=== PATIENT | male | born 1930 | race Caucasian/White ===

== ENCOUNTER 2021-04-05 10:58 | Emergency (ER) | payer MEDICARE ==
[~2021-04-05] VITALS: Ht 170.2 cm; Wt 60.5 kg
[2021-04-05] MEDS ORDERED: CARV3 PO (11:38)
[2021-04-05] MEDS ORDERED: NITR50CA3 PO (11:38)
[2021-04-05] MEDS ORDERED: OMEP20 PO (11:42)
[2021-04-05] MEDS ORDERED: SACU1TAB PO (11:42)
[2021-04-05] MEDS ORDERED: BUME0.5T4 PO (11:42)
[2021-04-05] MEDS ORDERED: FINA-27 PO (11:42)
[2021-04-05] MEDS ORDERED: ASPI-1450 PO (11:42)
[2021-04-05] MEDS ORDERED: ATOR10TA84 PO (11:42)
[2021-04-05] MEDS ORDERED: TAMS-13 PO (11:42)
[2021-04-05] MEDS ORDERED: PERTUSS(ACELL),DIPH,TET VAC/PF 0.5 ML SYRINGE IM. ONE (13:45)
[2021-04-05] MEDS ORDERED: ACETAMINOPHEN 325 MG TABLET PO ONE (13:45)
[2021-04-05 14:43] VITALS: BP 112/63
== END 2021-04-05 15:19 | disposition home or self-care (01) ==
LOC: EMS 11:01
DX: S09.90XA Unspecified injury of head, initial encounter (principal); I11.0 Hypertensive heart disease with heart failure; I50.9 Heart failure, unspecified; W18.39XA Other fall on same level, initial encounter; Y93.89 Activity, other specified; Y92.89 Other specified places as the place of occurrence of the external cause; Y99.8 Other external cause status
CPT/HCPCS: 70450; 72125; 90471; 90715; 99284

== ENCOUNTER 2022-02-19 15:23 | Emergency (ER) | payer MEDICARE, OTHER ==
[~2022-02-19] VITALS: Ht 165.1 cm; Wt 67.0 kg
[~2022-02-19 15:23] MED LIST: ASPI-1450 PO; ATOR10TA PO; BUME0.5T4 PO; CARV3 PO; FINA-27 PO; NITR50CA3 PO; OMEP20 PO; SACU1TAB PO; TAMS-13 PO
[2022-02-19 16:54] LABS: BASOPHILS % (AUTO) 0.6 % (0.0-2.0); EOSINOPHILS % (AUTO) 3.8 % (1.0-6.0); HEMATOCRIT 33.3 % (41-53); LYMPHOCYTES # (AUTO) 1.7 K/uL (1.0-4.8); LYMPHOCYTES % (AUTO) 29.7 % (22.0-44.0); MEAN CORPUSCULAR HEMOGLOBIN 32.6 pg (26.0-34.0); MEAN CORPUSCULAR HGB CONC 32.9 G/dL (31.0-37.0); MEAN CORPUSCULAR VOLUME 99 fL (80-100); MONOCYTES # (AUTO) 0.6 K/uL (0.1-1.0); MONOCYTES % (AUTO) 10.7 % (2.0-9.0); NEUTROPHILS # (AUTO) 3.2 K/uL (1.8-7.7); NEUTROPHILS % (AUTO) 55.2 % (40.0-70.0); PLATELET COUNT (AUTO) 222 K/uL (150-450); RED BLOOD CELL COUNT(AUTO) 3.36 MIL/uL (4.50-5.90); RED CELL DISTRIBUTION WIDTH 14.6 % (11.5-14.5)
[2022-02-19 17:13] LABS: ANION GAP 5 mmol/L (8-16); CALCIUM, TOTAL 9.6 mg/dL (8.8-10.5); CARBON DIOXIDE 30 mmol/L (22-29); CHLORIDE 103 mmol/L (98-107); CREATININE 1.46 mg/dL (0.60-1.30); GLOMERULAR FILTR. RATE CALC 45 mL/min (>60); GLUCOSE,RANDOM 128 mg/dL (70-110); POTASSIUM 4.8 mmol/L (3.5-5.1); SODIUM SERUM 138 mmol/L (136-145); UREA NITROGEN, BLOOD 39 mg/dL (7-18)
[2022-02-19 17:16] LABS: ALANINE AMINOTRANSFERASE 14 U/L (12-78); ALBUMIN 3.4 g/dL (3.4-5.0); ALKALINE PHOSPHATASE 73 U/L (46-116); ASPARTATE AMINOTRANSFERASE 18 U/L (15-37); BILIRUBIN,TOTAL 0.3 mg/dL (0.1-1.0); TOTAL PROTEIN, SERUM 7.4 g/dL (6.4-8.2)
[2022-02-19] MEDS ORDERED: LORazepam 1 MG TABLET PO PRN (18:00)
[2022-02-19] MEDS ORDERED: OLANZapine 5 MG RAPDIS TABLET PO PRN (18:00)
[2022-02-19 18:11] LABS: APPEARANCE,URINE HAZY (CLEAR); BILIRUBIN,URINE NEGATIVE (NEGATIVE); GLUCOSE, URINE (UA) NEGATIVE (NEGATIVE); KETONES,URINE NEGATIVE (NEGATIVE); LEUKOCYTE ESTERASE ,URINE LARGE (NEGATIVE); NITRATE,URINE NEGATIVE (NEGATIVE); OCCULT BLOOD,URINE TRACE (NEGATIVE); PROTEIN,URINE 30-70 mg/dL (NEGATIVE); SPECIFIC GRAVITIY, URINE 1.017 (1.003-1.030); UROBILINOGEN,URINE <=1.0 mg/dL (<=1.0)
[2022-02-19 18:17] LABS: AMPHET/METH SCREEN,URINE NEGATIVE (NEGATIVE); BARBITURATE SCREEN, URINE NEGATIVE (NEGATIVE); BENZODIAZEPINES SCREEN,URINE NEGATIVE (NEGATIVE); CANNABINOID SCREEN,URINE NEGATIVE (NEGATIVE); COCAINE SCREEN,URINE NEGATIVE (NEGATIVE); METHADONE SCREEN, URINE NEGATIVE (NEGATIVE); OPIATE SCREEN,URINE NEGATIVE (NEGATIVE)
[2022-02-19 18:18] LABS: PHENCYCLIDINE SCREEN,URINE NEGATIVE (NEGATIVE)
[2022-02-19 18:27] LABS: BACTERIA,URINE Rare /HPF (None Seen); RBC,URINE 0-2 /HPF (0-2); SQUAMOUS EPITHELIAL CELL,UR Few /LPF (None Seen)
[2022-02-19 18:35] LABS: COVID AG,FIA SOURCE NASOPHARYNGEAL
[2022-02-20] MEDS ORDERED: DOXY-354 PO ×2 (07:42→07:44)
[2022-02-20] MEDS ORDERED: CARV3.1231 PO (15:23)
[2022-02-20] MEDS ORDERED: BUME1TAB34 PO (15:23)
[2022-02-20 19:51] VITALS: BP 119/49
== END 2022-02-20 19:58 | disposition short-term general hospital (02) ==
LOC: EMS 15:53
DX: F32.9 Major depressive disorder, single episode, unspecified (principal); S61.411A Laceration without foreign body of right hand, initial encounter; I11.0 Hypertensive heart disease with heart failure; I50.9 Heart failure, unspecified; Z98.890 Other specified postprocedural states; Z20.822 Contact with and (suspected) exposure to COVID-19
CPT/HCPCS: 99285; 87426; 80053; 81001; 85025; 36415; 87086; 87186; 80307; U0003; G0480